=== PATIENT | male | born 1995 | race Caucasian/White ===

== ENCOUNTER 2018-11-21 16:27 | Emergency (ER) | payer BC ==
[2018-11-21 16:46] VITALS: BP 148/64
--- NOTE | 2018-11-21 17:02 | ED ---
Lower Extremity - HPI Summary HPI Summary: 23 yr old male with the complaint of left ankle lower leg pain. Onset this afternoon. The patient was jumping a anette and landed on the left foot, and felt a pop on the left side of the ankle leg. Pain is mild, he is able to bear weight. No swelling, bruising or deformity. No other complaints. - History of Current Complaint Chief Complaint: UCLowerExtremity Stated Complaint: LT ANKLE INJURY Time Seen by Provider: 11/21/18 16:40 Pain Intensity: 5 - Allergies/Home Medications Allergies/Adverse Reactions: Allergies Allergy/AdvReac Type Severity Reaction Status Date / Time azithromycin Allergy Rash Verified 11/21/18 16:46 Home Medications: Home Medications NK [No Home Medications Reported] 11/21/18 [History Confirmed 11/21/18] PMH/Surg Hx/FS Hx/Imm Hx - Surgical History Surgery Procedure, Year, and Place: wisdom teeth Infectious Disease History: No Infectious Disease History: Denies: Traveled Outside the [place] in Last 30 Days - Family History Known Family History: Positive: None - Social History Occupation: Student Alcohol Use: Weekly Substance Use Type: Reports: None Smoking Status (MU): Never Smoked Tobacco Review of Systems Constitutional: Negative Positive: Other - left ankle, leg pain All Other Systems Reviewed And Are Negative: Yes Physical Exam Triage Information Reviewed: Yes Vital Signs On Initial Exam: Initial Vitals Temp Pulse Resp BP Pulse Ox 99.1 F 99 16 148/64 99 11/21/18 16:42 11/21/18 16:42 11/21/18 16:42 11/21/18 16:42 11/21/18 16:42 Vital Signs Reviewed: Yes Appearance: Positive: Well-Appearing, No Pain Distress Skin: Positive: Warm, Skin Color Reflects Adequate Perfusion Head/Face: Positive: Normal Head/Face Inspection Eyes: Positive: EOMI ENT: Positive: Normal ENT inspection Neck: Positive: Nontender Respiratory/Lung Sounds: Positive: Other - normal effort Cardiovascular: Positive: Pulses are Symmetrical in both Upper and Lower Extremities Abdomen Description: Negative: Distended Musculoskeletal: Positive: Other - left ankle without STS, no bruising. He has mild tenderness over lateral ankle and lateral fibula. No deformity. Neurological: Positive: Sensory/Motor Intact, Alert, Oriented to Person Place, Time, CN Intact II-III, Normal Gait, Speech Normal Procedures - Splinting Left Lower Extremity Location: left lower leg Hand-Made Type: orthoglass Splint: posterior walking Pre-Proc Neuro Vasc Exam: normal Post-Proc Neuro Vasc Exam: normal Diagnostics - Vital Signs Vital Signs Temp Pulse Resp BP Pulse Ox 11/21/18 16:42 99.1 F 99 16 148/64 99 - Laboratory Lab Statement: Any lab studies that have been ordered have been reviewed, and results considered in the medical decision making process. - Radiology left ankle, leg Radiology Interpretation Completed By: Radiologist - mid diaphysis fracture, non displaced. Lower Extremity Course/Dx - Course Course Of Treatment: 23 yr old with mid shaft fib fracture left leg. Posterior splint applied by me, please see proceedure note, no weight bearing and crutches to use. FU with Ortho. - Diagnoses Provider Diagnoses: Closed left fibular fracture, Hypertension, Nondisplaced fracture Discharge - Sign-Out/Discharge Documenting (check all that apply): Patient Departure All imaging exams completed and their final reports reviewed: Yes - Discharge Plan Condition: Good Disposition: HOME Patient Education Materials: Leg Fracture (ED), Hypertension (ED) Referrals: Toyin GARCIA,Jesús Ramon [Primary Care Provider] - Mann Wright MD [Medical Doctor] - 2 Days - Billing Disposition and Condition Condition: GOOD Disposition: Home
== END 2018-11-21 18:24 | disposition home or self-care (01) ==
LOC: UCCORT 16:27
DX: S82.402A Unspecified fracture of shaft of left fibula, initial encounter for closed fracture (principal); X58.XXXA Exposure to other specified factors, initial encounter; Y30.XXXA Falling, jumping or pushed from a high place, undetermined intent, initial encounter; Y92.9 Unspecified place or not applicable; I10 Essential (primary) hypertension; Z88.1 Allergy status to other antibiotic agents
CPT/HCPCS: 99202; G0463